=== PATIENT | female | born 1935 | race Caucasian/White ===

== ENCOUNTER 2018-04-26 08:51 | Day surgery (SDC) | payer MEDICARE, BC ==
[2018-04-24 10:48] VITALS: BMI 24.7
[~2018-04-26 08:51] MED LIST: LACTATED RINGERS 1,000 ML IV SCH
[2018-04-26 09:28] VITALS: TEMP 978.3
[2018-04-26] MEDS ORDERED: LIDOCAINE 1% 20 ML VIAL (10MG/ML) FOR IV START INTRADERMA ONE (09:30)
[2018-04-26] MEDS ORDERED: PROPOFOL 10 MG/ML 20 ML VIAL IV ONE (09:59)
[2018-04-26] MEDS ORDERED: LIDOCAINE 1% INJ 10MG/ML (20 ML MDV) ONE (09:59)
--- NOTE | 2018-04-26 10:21 | P.PCN ---
Date of Procedure: 04/26/18 Procedure(s) Performed: Brief history: Patient is a pleasant 83-year-old white female, scheduled for an elective upper endoscopy as well as colonoscopy as a part of evaluation of GERD/Cherry's esophagus and prior history of colon polyps. Procedure performed: Esophagogastroduodenoscopy with biopsy Colonoscopy with snare polypectomy Preoperative diagnosis: GERD/Cherry's esophagus History of colon polyps Anesthesia: MAC Procedure: After informed consent was obtained from the patient was brought into the endoscopy unit and IV sedation was administered by anesthesia under continuous monitoring. Initially upper endoscopy was done. The Olympus GF 160 video endoscope was inserted inserted into the mouth and esophagus intubated without any difficulty and was gradually advanced into the stomach and duodenum and carefully examined. The bulb and second part of the duodenum appeared normal. The scope was then withdrawn into the stomach adequately insufflated with air and upon careful examination the antrum and body, cardia and fundus appeared normal. The scope was then withdrawn into the esophagus. Moderate size hiatal hernia noted. The GE junction was located at 30 cm to the incisors. There was a short segment Cherry's esophagus extending 2 cm proximal to the GE junction and this was biopsied. It appeared regular with no erythema erosions or ulcerations. Rest of the esophagus appeared normal. Patient tolerated the procedure well. At this time the patient continued to remain sedation. Initial digital rectal examination was normal. Olympus CF 160 video colonoscope was then inserted into the rectum and gradually advanced to the cecum without any difficulty. Careful examination was performed as the scope was gradually being withdrawn. The prep was excellent. The cecum, ascending colon, transverse colon, descending colon, appeared normal. In the sigmoid colon there was a 1 cm polyp removed by snare polypectomy. Rest of the sigmoid colon and rectum appeared normal. Retroflexion was performed in the rectum and no lesions were noted. Patient tolerated the procedure well. Impression: 1. 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 2. Colonoscopy revealed 1 cm sigmoid colon polyp status post snare polypectomy and scattered sigmoid diverticulosis. Recommendations: Findings of this examination were discussed with the patient as well as her family. She was advised to follow with the biopsy results. If the biopsy confirms presence of Cherry's esophagus, she can have a repeat upper endoscopy in 2 years
[2018-04-26 10:41] VITALS: BP 120/60; PULSE 68; RESP 18
== END 2018-04-26 11:11 | disposition home or self-care (01) ==
LOC: ORWHC2ENDO 08:51
PROVIDERS: ATTEND Internal Medicine Gastroenterology
DX: Z12.11 Encounter for screening for malignant neoplasm of colon (principal); D12.5 Benign neoplasm of sigmoid colon; K57.30 Diverticulosis of large intestine without perforation or abscess without bleeding; K22.70 Barrett's esophagus without dysplasia; K44.9 Diaphragmatic hernia without obstruction or gangrene; K29.70 Gastritis, unspecified, without bleeding; K21.9 Gastro-esophageal reflux disease without esophagitis; Z86.010 Personal history of colon polyps; I10 Essential (primary) hypertension; E78.5 Hyperlipidemia, unspecified; J45.909 Unspecified asthma, uncomplicated; Z79.51 Long term (current) use of inhaled steroids; Z79.899 Other long term (current) drug therapy
CPT/HCPCS: 88305; 45385; 43239; J2001; J2704

== ENCOUNTER → 2020-09-10 | Outpatient (CLI) | payer MEDICARE, BC ==
--- NOTE | 2020-09-14 08:14 | MM ---
Reason for exam: screening (asymptomatic). Last mammogram was performed 2 years and 6 months ago. History: Patient is postmenopausal. Family history of breast cancer in sister, breast cancer in mother, and breast cancer in maternal aunt. Physical Findings: A clinical breast exam by your physician is recommended on an annual basis and results should be correlated with mammographic findings. MG 3D Screening Mammo W/Cad Bilateral CC, MLO, and XCCL view(s) were taken. Prior study comparison: February 28, 2018, mammogram. November 16, 2016, mammogram. The breast tissue is heterogeneously dense. This may lower the sensitivity of mammography. Benign appearing bilateral calcifications. No significant changes when compared with prior studies. ASSESSMENT: Benign, BI-RAD 2 RECOMMENDATION: Routine screening mammogram of both breasts in 1 year.
== END | disposition home or self-care (01) ==
LOC: RADMAMWWP 12:55
PROVIDERS: ATTEND Family Medicine
DX: Z12.31 Encounter for screening mammogram for malignant neoplasm of breast (principal)
CPT/HCPCS: 77063; 77067

== ENCOUNTER 2021-10-03 11:28 | Inpatient (IN) | payer MEDICARE, BC ==
[2021-10-03] MEDS ORDERED: methylPREDNISolone SOD SUCCI 125 MG/2 ML VIAL IV STA (14:01)
[2021-10-03] MEDS ORDERED: IPRATROPIUM-ALBUTEROL 3 ML NEB INHALATION STA (14:01)
--- NOTE | 2021-10-03 14:36 | XR ---
EXAMINATION TYPE: XR chest 2V DATE OF EXAM: 10/03/2021 COMPARISON: NONE HISTORY: Cough, shortness of breath TECHNIQUE: Frontal and lateral views of the chest are obtained. FINDINGS: Patient is rotated. There is biapical pleural thickening. Retrocardiac lucency with air-fl uid level consistent with hiatal hernia and intrathoracic stomach. Prominent lung markings suggest un derlying COPD. Bone mineralization is reduced. No pneumothorax or pleural effusion. Cardiac silhouett e is enlarged. Patchy density suspected in the right upper lobe. IMPRESSION: Correlate for pneumonia, follow up recommended.
--- NOTE | 2021-10-03 14:55 | ED ---
URI HPI - General Source: patient, RN notes reviewed Mode of arrival: wheelchair Limitations: no limitations <London Oneil - Last Filed: 10/03/21 15:37> <Jennifer Villa - Last Filed: 10/06/21 00:40> - General Chief Complaint: Upper Respiratory Infection Stated Complaint: asthma attack Time Seen by Provider: 10/03/21 13:43 - History of Present Illness Initial Comments: This an 86-year-old female presents emergency Department chief complaint of cough congestion or shortness breath. Patient states symptoms started on Sunday progressed. Patient states she noticed increasing wheezing, shortness of breath she does use her inhaler she has for asthma which seems to help wears off quickly. No exact fever, she does claim a mild chills no sick contacts. Denies any chest pain, headache or dizziness. She states it does hurt herself today. Patient denies any nausea vomiting diarrhea constipation. Patient offers no complaints. (London Oneil) - Related Data Home Medications Medication Instructions Recorded Confirmed Atorvastatin [Lipitor] 40 mg PO HS 04/24/18 10/03/21 Cetirizine HCl [Zyrtec] 10 mg PO DAILY 04/24/18 10/03/21 Fluticasone/Salmeterol [Advair 1 puff INHALATION RT-BID 04/24/18 10/03/21 250-50 Diskus] LORazepam [Ativan] 0.25 mg PO HS 04/24/18 10/03/21 LORazepam [Ativan] 0.5 mg PO DAILY 04/24/18 10/03/21 Metoprolol Tartrate 25 mg PO DAILY 04/24/18 10/03/21 Omeprazole 20 mg PO DAILY 04/24/18 10/03/21 Sertraline [Zoloft] 50 mg PO DAILY 04/24/18 10/03/21 Albuterol Sulfate [Ventolin HFA] 1 - 2 puff INHALATION RT-QID PRN 10/03/21 10/03/21 Fluticasone Nasal [place] [Flonase 1 spray EA NOSTRIL DAILY PRN 10/03/21 10/03/21 Nasal [place]] Previous Rx's Medication Instructions Recorded Amoxic-Pot Clav 875-125Mg 1 tab PO BID 7 Days #14 tab 10/05/21 [Augmentin 875-125] Sucralfate [Carafate] 1 gm PO ACHS #120 tablet 10/05/21 guaiFENesin [Mucinex] 1,200 mg PO Q12HR #60 tablet 10/05/21 predniSONE [Deltasone] 40 mg PO DAILY #14 tab 10/05/21 Allergies Allergy/AdvReac Type Severity Reaction Status Date / Time No Known Allergies Allergy Verified 10/03/21 16:21 Review of Systems ROS Other: All systems not noted in ROS Statement are negative. <London Oneil - Last Filed: 10/03/21 15:37> ROS Other: All systems not noted in ROS Statement are negative. <Jennifer Villa - Last Filed: 10/06/21 00:40> ROS Statement: Those systems with pertinent positive or pertinent negative responses have been documented in the HPI. Past Medical History Past Medical History: Asthma, GERD/Reflux, Hyperlipidemia, Hypertension, Osteoarthritis (OA), Skin Disorder Additional Past Medical History / Comment(s): Irregular heartbeat, Barretts esophagus, constipation skin disorder resolved, can't remember name of it. "Runs a low temp most of the time." History of Any Multi-Drug Resistant Organisms: None Reported Past Surgical History: Hysterectomy Additional Past Surgical History / Comment(s): Bilateral cataracts. Past Anesthesia/Blood Transfusion Reactions: No Reported Reaction Past Psychological History: Anxiety Smoking Status: Never smoker Past Alcohol Use History: None Reported Past Drug Use History: None Reported - Past Family History Mother Family Medical History: Cancer Additional Family Medical History / Comment(s): Breast cancer Father Family Medical History: Cancer Additional Family Medical History / Comment(s): Colon cancer Sister(s) Family Medical History: Cancer Additional Family Medical History / Comment(s): Breast cancer <London Oneil - Last Filed: 10/03/21 15:37> General Exam Limitations: no limitations General appearance: alert, in no apparent distress Head exam: Present: atraumatic, normocephalic, normal inspection Eye exam: Present: normal appearance, PERRL, EOMI. Absent: scleral icterus, conjunctival injection, periorbital swelling ENT exam: Present: normal exam, normal oropharynx, mucous membranes moist Neck exam: Present: normal inspection, full ROM. Absent: tenderness, meningismus, lymphadenopathy Respiratory exam: Present: wheezes. Absent: normal lung sounds bilaterally, respiratory distress, rales, rhonchi, stridor Cardiovascular Exam: Present: regular rate, normal rhythm, normal heart sounds. Absent: systolic murmur, diastolic murmur, rubs, gallop, clicks <London Oneil - Last Filed: 10/03/21 15:37> Course Vital Signs 10/03/21 10/03/21 10/03/21 13:35 14:33 15:06 Temperature 98.3 F Pulse Rate 65 63 65 Respiratory 20 18 Rate Blood Pressure 100/72 188/80 O2 Sat by Pulse 95 92 L Oximetry 10/03/21 10/03/21 10/03/21 15:20 16:15 16:19 Temperature Pulse Rate 66 73 Respiratory 18 20 Rate Blood Pressure 156/80 O2 Sat by Pulse 92 L Oximetry 10/03/21 16:23 Temperature 98.3 F Pulse Rate 73 Respiratory 20 Rate Blood Pressure 156/80 O2 Sat by Pulse 92 L Oximetry Medical Decision Making - Lab Data Result diagrams: 10/03/21 14:33 10/03/21 14:33 <London Oneil - Last Filed: 10/03/21 15:37> - Lab Data Result diagrams: 10/03/21 14:33 10/03/21 14:33 <Jennifer Villa - Last Filed: 10/06/21 00:40> - Medical Decision Making Chest x-ray shows evidence of pneumonia. Patient has had some hypoxia 90%. Patient will be made for acute asthma exacerbation, pneumonia. (London Oneil) I was available for consultation in the emergency department. The history and physical exam were done by the midlevel provider. I was consulted for this patients care. I reviewed the case with the midlevel provider and based on their presentation of the patient, I agree with the assessment, medical decision making and plan of care as documented. Chart was dictated using [employer] dictation software. Attempts were made to correct any dictation errors however some typographical errors may persist. ( Jennifer Villa) - Lab Data Lab Results 10/03/21 10/03/21 10/03/21 Range/Units 14:01 14:33 14:33 WBC 10.5 (3.8-10.6) k/uL RBC 4.38 (3.80-5.40) m/uL Hgb 13.1 (11.4-16.0) gm/dL Hct 40.4 (34.0-46.0) % MCV 92.2 (80.0-100.0) fL MCH 29.9 (25.0-35.0) pg MCHC 32.4 (31.0-37.0) g/dL RDW 12.9 (11.5-15.5) % Plt Count 237 (150-450) k/uL MPV 7.5 Neutrophils % 77 % Lymphocytes % 9 % Monocytes % 6 % Eosinophils % 7 % Basophils % 1 % Neutrophils # 8.0 H (1.3-7.7) k/uL Lymphocytes # 1.0 (1.0-4.8) k/uL Monocytes # 0.6 (0-1.0) k/uL Eosinophils # 0.7 (0-0.7) k/uL Basophils # 0.1 (0-0.2) k/uL Sodium 137 (137-145) mmol/L Potassium 4.7 (3.5-5.1) mmol/L Chloride 103 (98-107) mmol/L Carbon Dioxide 25 (22-30) mmol/L Anion Gap 9 mmol/L BUN 21 H (7-17) mg/dL Creatinine 1.20 H (0.52-1.04) mg/dL Est GFR (CKD-EPI)AfAm 47 (>60 ml/min/1.73 sqM) Est GFR (CKD-EPI)NonAf 41 (>60 ml/min/1.73 sqM) Glucose 93 (74-99) mg/dL Calcium 9.2 (8.4-10.2) mg/dL Total Bilirubin 0.4 (0.2-1.3) mg/dL AST 24 (14-36) U/L ALT 18 (4-34) U/L Alkaline Phosphatase 101 (38-126) U/L Total Protein 7.2 (6.3-8.2) g/dL Albumin 4.0 (3.5-5.0) g/dL Coronavirus (PCR) Not Detected (Not Detectd) Disposition <London Oneil - Last Filed: 10/03/21 15:37> <Jennifer Villa - Last Filed: 10/06/21 00:40> Clinical Impression: Pneumonia, Asthma exacerbation Disposition: ADMITTED IP TO THIS HOSP Condition: Fair
[2021-10-03 15:02] LABS: Basophils # (A) 0.1 k/uL (0-0.2); Basophils % (A) 1 %; Eosinophils # (A) 0.7 k/uL (0-0.7); Eosinophils % (A) 7 %; HCT 40.4 % (34.0-46.0); HGB 13.1 gm/dL (11.4-16.0); Lymphocytes % (A) 9 %; MCH 29.9 pg (25.0-35.0); MCHC 32.4 g/dL (31.0-37.0); MCV 92.2 fL (80.0-100.0); Mean Platelet Volume 7.5; Monocytes # (A) 0.6 k/uL (0-1.0); Monocytes % (A) 6 %; Neutrophils % (A) 77 %; Platelet Count 237 k/uL (150-450); RBC 4.38 m/uL (3.80-5.40); RDW 12.9 % (11.5-15.5); WBC 10.5 k/uL (3.8-10.6)
[2021-10-03 15:18] LABS: Calcium 9.2 mg/dL (8.4-10.2); Potassium 4.7 mmol/L (3.5-5.1); Total Bilirubin 0.4 mg/dL (0.2-1.3); Total Protein 7.2 g/dL (6.3-8.2)
[2021-10-03] MEDS ORDERED: AZITHROMYCIN 500 MG in SODIUM CHLORIDE 0.9% 250 ML IVPB STA (15:35)
[2021-10-03] MEDS ORDERED: PNEUMONIA PROTOCOL UTILIZED 1 EACH MISC PO PRN (15:37)
[2021-10-03] MEDS ORDERED: methylPREDNISolone SOD SUCCI 125 MG/2 ML VIAL IV SCH (16:00)
[2021-10-03] MEDS ORDERED: FLUTICASONE 50MCG/SPRAY NASAL 16GM EA NOSTRIL PRN (17:28)
[2021-10-03] MEDS: LORATADINE 10 MG TAB PO SCH (17:49)
[2021-10-03] MEDS: IPRATROPIUM-ALBUTEROL 3 ML NEB INHALATION SCH ×2 (19:57→20:06)
[2021-10-03] MEDS: LORazepam 0.5 MG TAB PO SCH (20:00)
[2021-10-03] MEDS: ATORVASTATIN 40 MG TAB PO SCH (20:01)
[2021-10-03] MEDS: methylPREDNISolone SOD SUCCI 125 MG/2 ML VIAL IV SCH (20:01)
[2021-10-03] MEDS: guaiFENesin 600 MG TABLET.ER PO SCH (20:01)
[2021-10-03] MEDS: BUDESONIDE 0.5 MG/2 ML NEBU INHALATION SCH (20:05)
[2021-10-03] MEDS: ACETAMINOPHEN TAB 325 MG TAB PO PRN (21:00)
[2021-10-04] MEDS: IPRATROPIUM-ALBUTEROL 3 ML NEB INHALATION SCH ×8 (00:43→20:58)
[2021-10-04] MEDS: methylPREDNISolone SOD SUCCI 125 MG/2 ML VIAL IV SCH ×4 (00:49→18:09)
[2021-10-04] MEDS: BUDESONIDE 0.5 MG/2 ML NEBU INHALATION SCH ×2 (08:10→20:58)
[2021-10-04] MEDS: SERTRALINE 50 MG TAB PO SCH (08:10)
[2021-10-04] MEDS: METOPROLOL TARTRATE 25 MG TAB PO SCH (08:10)
[2021-10-04] MEDS: PANTOPRAZOLE 40 MG TABLET PO SCH (08:10)
[2021-10-04] MEDS: LORATADINE 10 MG TAB PO SCH (08:10)
[2021-10-04] MEDS: AZITHROMYCIN 500 MG TAB PO SCH (08:10)
[2021-10-04] MEDS: guaiFENesin 600 MG TABLET.ER PO SCH ×2 (08:10→21:16)
--- NOTE | 2021-10-04 08:53 | XR ---
EXAMINATION TYPE: XR chest 2V DATE OF EXAM: 10/04/2021 COMPARISON: Chest x-ray dated 10/03/2021 HISTORY: Pneumonia TECHNIQUE: Frontal and lateral views of the chest are obtained. FINDINGS: Prominent lung volume may be indicative of underlying COPD. Partial intrathoracic stomach is again noted. No evident pneumothorax. Right hemidiaphragm is elevated. Heart size is increased, ap pearance may be accentuated by rotation. Biapical pleural thickening is stable. There may be some sli ght improvement in aeration. Bone mineralization is reduced. IMPRESSION: There is some improvement in aeration.
--- NOTE | 2021-10-04 15:32 | P.HPIM ---
History of Present Illness H&P Date: 10/04/21 HISTORY OF PRESENT ILLNESS Is is an 86-year-old female patient of Dr. Gordon Blake with past medical history of hiatal hernia, gastroesophageal reflux disease, chronic ALLERGIES, hypertension, hyperlipidemia, mild intermittent asthma, generalized anxiety disorder and recurrent depression. Patient states that she has had shortness of breath and cough started with a runny nose on Sunday and she contacted her doctor and he recommended a Covid test which came back negative. She came into [facility] emergency center yesterday due to worsening of her symptoms along with wheezing. She was found to be afebrile, heart rate 65, blood pressure 100/72, pulse ox 95% on room air. CBC was unremarkable. Electrolytes normal. BUN 21 and creatinine 1.2. Carotid virus PCR not detected. Liver function tests were normal. Chest x-ray reports correlate for pneumonia. Repeat chest x-ray reveals improvement in aeration. Patient started on IV Solu-Medrol, DuoNeb treatments, ceftriaxone and azithromycin along with Pulmicort, Mucinex admitted to the [facility] floor. REVIEW OF SYSTEMS Constitutional: No fever, no chills, no night sweats. No weight change. No weakness, fatigue or lethargy. No daytime sleepiness. EENT: No headache. No blurred vision or double vision, no loss of vision. No loss of Hearing, no ringing in the ears, no dizziness. Reports nasal drainage or congestion. No epistaxis. No sore throat. Lungs: Reports shortness of breath, Reports cough, no sputum production. No wheezing. Cardiovascular: No chest pain, no lower extremity edema. No palpitations. No paroxysmal nocturnal dyspnea. No orthopnea. No lightheadedness or dizziness. No syncopal episodes. Abdominal: No abdominal pain. No nausea, vomiting. No diarrhea. No constipation. No bloody or tarry stools. No loss of appetite. Genitourinary: No dysuria, increased frequency, urgency. No urinary retention. Musculoskeletal: No myalgias. No muscle weakness, no gait dysfunction, no frequent falls. No back pain. No neck pain. Integumentary: No wounds, no lesions. No rash or pruritus. No unusual bruising. No change in hair or nails. Neurologic: No aphasia. No facial droop. No change in mentation. No head injury. No headache. No paralysis. No paresthesia. Psychiatric: No depression. No anxiety. No mood swings. Endocrine: No abnormal blood sugars. No weight change. No excessive sweating or thirst. No cold intolerance. SOCIAL HISTORY Patient is a lifelong nonsmoker, no marijuana use, illicit drug use or alcohol use. FAMILY HISTORY at age 82 from breast cancer. Father at age 79 from colon cancer with metastatic disease. Patient has 3 brothers, one at age 92 from old age, one at 84 from old age and one has history of low sodium. She has one brother living at age 92 with no major medical problems. Patient has one sister that age 80 with breast cancer and one with history of low sodium. Patient has 2 children one boy and one girl with history of GERD PHYSICAL EXAMINATION Gen: This is an 86-year-old female. She is resting in bed in her room and appears to be comfortable and in no acute distress. She does complain of shaking secondary to steroid. HEENT: Head is atraumatic, normocephalic. Pupils equal, round. Sclerae is anicteric. NECK: Supple. No JVD. No lymphadenopathy. No thyromegaly. LUNGS: Clear bilaterally with mild wheezing. No intercostal retractions. HEART: Regular rate and rhythm. No murmur. ABDOMEN: Soft. Bowel sounds are present. No masses. No tenderness. EXTREMITIES: No pedal edema. No calf tenderness. NEUROLOGICAL: Patient is awake, alert and oriented x3. Cranial nerves 2 through 12 are grossly intact. ASSESSMENT AND PLAN 1. Pneumonia, possible aspiration pneumonia. Patient started on azithromycin and ceftriaxone, consult with speech therapy to evaluate for aspiration due to history of hiatal hernia and gastroesophageal reflux disease, right upper lobe pneumonia. 2. Mild intermittent asthma exacerbation, COPD exacerbation. Patient continued on DuoNeb treatments every 4 hours and is negative, Pulmicort 0.5 mg twice daily, Solu-Medrol 60 mg IV every 6 hours, Mucinex 1200 mg twice daily. 3. History of gastroesophageal reflux disease and hiatal hernia. Continue Protonix 40 mg daily. 4. Chronic ALLERGIES. Continue Flonase, Claritin daily. 5. Hypertension. Continue metoprolol 25 mg daily 6. Hyperlipidemia. Continue atorvastatin 40 mg at bedtime. 7. Generalized anxiety disorder and recurrent depression. Continue Ativan 0.5 mg daily, Zoloft 50 mg daily. 8. DVT prophylaxis. Lovenox subcu. 9. COVID-19 testing negative. Patient has been hospitalized during a pandemic. Patient will be admitted to the hospital for a minimum of 2 night stay. DISCHARGE PLAN Home. Impression and plan of care have been directed as dictated by the signing physician. Kiara Varner nurse practitioner acting as scribe for signing physician. Past Medical History Past Medical History: Asthma, GERD/Reflux, Hyperlipidemia, Hypertension, Osteoarthritis (OA), Skin Disorder Additional Past Medical History / Comment(s): Irregular heartbeat, Barretts esophagus, constipation skin disorder resolved, can't remember name of it. "Runs a low temp most of the time." History of Any Multi-Drug Resistant Organisms: None Reported Past Surgical History: Hysterectomy Additional Past Surgical History / Comment(s): Bilateral cataracts. Past Anesthesia/Blood Transfusion Reactions: No Reported Reaction Past Psychological History: Anxiety Smoking Status: Never smoker Past Alcohol Use History: None Reported Past Drug Use History: None Reported - Past Family History Mother Family Medical History: Cancer Additional Family Medical History / Comment(s): Breast cancer Father Family Medical History: Cancer Additional Family Medical History / Comment(s): Colon cancer Sister(s) Family Medical History: Cancer Additional Family Medical History / Comment(s): Breast cancer Medications and Allergies Home Medications Medication Instructions Recorded Confirmed Type Atorvastatin [Lipitor] 40 mg PO HS 04/24/18 10/03/21 History Cetirizine HCl [Zyrtec] 10 mg PO DAILY 04/24/18 10/03/21 History Fluticasone/Salmeterol [Advair 1 puff INHALATION RT-BID 04/24/18 10/03/21 History 250-50 Diskus] LORazepam [Ativan] 0.25 mg PO HS 04/24/18 10/03/21 History LORazepam [Ativan] 0.5 mg PO DAILY 04/24/18 10/03/21 History Metoprolol Tartrate 25 mg PO DAILY 04/24/18 10/03/21 History Omeprazole 20 mg PO DAILY 04/24/18 10/03/21 History Sertraline [Zoloft] 50 mg PO DAILY 04/24/18 10/03/21 History Albuterol Sulfate [Ventolin HFA] 1 - 2 puff INHALATION RT-QID PRN 10/03/21 10/03/21 History Fluticasone Nasal [place] [Flonase 1 spray EA NOSTRIL DAILY PRN 10/03/21 10/03/21 History Nasal [place]] Allergies Allergy/AdvReac Type Severity Reaction Status Date / Time No Known Allergies Allergy Verified 10/03/21 16:21 Physical Exam Vitals: Vital Signs Temp Pulse Pulse Resp BP BP Pulse Ox 10/04/21 08:24 97 10/04/21 08:10 93 96 10/04/21 07:00 98.3 F 101 H 16 157/68 96 10/04/21 04:53 112 H 10/04/21 04:42 110 H 10/04/21 02:00 93 20 10/04/21 01:59 97.9 F 88 18 107/57 91 L 10/03/21 20:19 92 10/03/21 20:06 93 10/03/21 19:57 20 10/03/21 19:53 98.0 F 93 22 144/76 91 L 10/03/21 16:23 98.3 F 73 20 156/80 92 L 10/03/21 16:19 20 10/03/21 16:15 73 18 156/80 92 L 10/03/21 15:20 66 10/03/21 15:06 65 10/03/21 14:33 63 18 188/80 92 L 10/03/21 13:35 98.3 F 65 20 100/72 95 Intake and Output 10/03/21 10/04/21 10/04/21 22:59 06:59 14:59 Intake Total 320 150 Balance 320 150 Intake: Oral 320 150 Other: Voiding Method Diaper Diaper Diaper # Voids 1 1 Weight 58.967 kg Results CBC & Chem 7: 10/03/21 14:33 10/03/21 14:33 Labs: Abnormal Lab Results - Last 24 Hours (Table) 10/03/21 10/03/21 Range/Units 14:33 14:33 Neutrophils # 8.0 H (1.3-7.7) k/uL BUN 21 H (7-17) mg/dL Creatinine 1.20 H (0.52-1.04) mg/dL Thrombosis Risk Factor Assmnt - Choose All That Apply Each Risk Factor Represents 3 Points: Age 75 years or older Thrombosis Risk Factor Assessment Total Risk Factor Score: 3 Thrombosis Risk Factor Assessment Level: Moderate Risk
[2021-10-04 17:29] LABS: Glucose,Whole Blood 173 mg/dL (75-99)
[2021-10-04] MEDS: INSULIN ASPART (NovoLOG) 100 UNIT/ML VIAL SQ SCH ×2 (18:09→21:16)
[2021-10-04 20:31] LABS: Glucose,Whole Blood 137 mg/dL (75-99)
[2021-10-04] MEDS: LORazepam 0.5 MG TAB PO SCH (21:16)
[2021-10-04] MEDS: ACETAMINOPHEN TAB 325 MG TAB PO PRN (21:16)
[2021-10-04] MEDS: ATORVASTATIN 40 MG TAB PO SCH (21:16)
[2021-10-05] MEDS: IPRATROPIUM-ALBUTEROL 3 ML NEB INHALATION SCH ×3 (00:33→08:53)
[2021-10-05 01:57] VITALS: RESP 18
[2021-10-05] MEDS: methylPREDNISolone SOD SUCCI 125 MG/2 ML VIAL IV SCH (02:02)
[2021-10-05 07:43] LABS: Glucose,Whole Blood 136 mg/dL (75-99)
[2021-10-05] MEDS ORDERED: methylPREDNISolone SOD SUCCI 125 MG/2 ML VIAL IV SCH (08:00)
[2021-10-05 08:29] VITALS: BP 156/68; TEMP 97.6
[2021-10-05] MEDS: BUDESONIDE 0.5 MG/2 ML NEBU INHALATION SCH (08:52)
[2021-10-05] MEDS ORDERED: ENOXAPARIN 40 MG/0.4 ML SYRINGE SQ SCH (09:00)
[2021-10-05] MEDS ORDERED: LORazepam 0.5 MG TAB PO SCH (09:00)
[2021-10-05 09:05] VITALS: PULSE 83
[2021-10-05] MEDS: SERTRALINE 50 MG TAB PO SCH (09:20)
[2021-10-05] MEDS: AZITHROMYCIN 500 MG TAB PO SCH (09:20)
[2021-10-05] MEDS: guaiFENesin 600 MG TABLET.ER PO SCH (09:20)
[2021-10-05] MEDS: METOPROLOL TARTRATE 25 MG TAB PO SCH (09:20)
[2021-10-05] MEDS: LORATADINE 10 MG TAB PO SCH (09:20)
[2021-10-05] MEDS: PANTOPRAZOLE 40 MG TABLET PO SCH (09:20)
[2021-10-05] MEDS: INSULIN ASPART (NovoLOG) 100 UNIT/ML VIAL SQ SCH (09:21)
--- NOTE | 2021-10-05 16:48 | P.DS ---
Providers Date of admission: 10/04/21 08:56 Attending physician: Terri Whitfield MD Primary care physician: [facility] Course: HISTORY OF PRESENT ILLNESS Is is an 86-year-old female patient of Dr. Gordon Blake with past medical history of hiatal hernia, gastroesophageal reflux disease, chronic ALLERGIES, hypertension, hyperlipidemia, mild intermittent asthma, generalized anxiety disorder and recurrent depression. Patient states that she has had shortness of breath and cough started with a runny nose on Sunday and she contacted her doctor and he recommended a Covid test which came back negative. She came into [facility] emergency center yesterday due to worsening of her symptoms along with wheezing. She was found to be afebrile, heart rate 65, blood pressure 100/72, pulse ox 95% on room air. CBC was unremarkable. Electrolytes normal. BUN 21 and creatinine 1.2. Carotid virus PCR not detected. Liver function tests were normal. Chest x-ray reports correlate for pneumonia. Repeat chest x-ray reveals improvement in aeration. Patient started on IV Solu-Medrol, DuoNeb treatments, ceftriaxone and azithromycin along with Pulmicort, Mucinex [facility]. 10/05 patient examined bedside. She is doing better denies any shortness of breath or cough production. We'll discharge patient on prednisone 40 mg by mouth daily for 5 days with Augmentin for 7 days as there was a concern for aspiration pneumonia. Patient will also benefit from adding Carafate to her regimen to prevent future aspiration and GERD symptoms PHYSICAL EXAMINATION Gen: This is an 86-year-old female. She is resting in bed in her room and appears to be comfortable and in no acute distress. She does complain of shaking secondary to steroid. HEENT: Head is atraumatic, normocephalic. Pupils equal, round. Sclerae is anicteric. NECK: Supple. No JVD. No lymphadenopathy. No thyromegaly. LUNGS: Clear bilaterally with improvement in wheezing. No intercostal retractions. HEART: Regular rate and rhythm. No murmur. ABDOMEN: Soft. Bowel sounds are present. No masses. No tenderness. EXTREMITIES: No pedal edema. No calf tenderness. NEUROLOGICAL: Patient is awake, alert and oriented x3. Cranial nerves 2 through 12 are grossly intact. ASSESSMENT AND PLAN 1. Pneumonia, possible aspiration pneumonia. 2. Mild intermittent asthma exacerbation, COPD exacerbation. 3. History of gastroesophageal reflux disease and intrathoracic hiatal hernia. 4. Chronic ALLERGIES. 5. Hypertension. 6. Hyperlipidemia. 7. Generalized anxiety disorder and recurrent depression. Disposition home Patient Condition at Discharge: Fair Plan - Discharge Summary Discharge Rx Participant: No New Discharge Prescriptions: New Amoxic-Pot Clav 875-125Mg [Augmentin 875-125] 1 tab PO BID 7 Days #14 tab predniSONE [Deltasone] 40 mg PO DAILY #14 tab guaiFENesin [Mucinex] 1,200 mg PO Q12HR #60 tablet Sucralfate [Carafate] 1 gm PO ACHS #120 tablet Continue Fluticasone/Salmeterol [Advair 250-50 Diskus] 1 puff INHALATION RT-BID Sertraline [Zoloft] 50 mg PO DAILY LORazepam [Ativan] 0.5 mg PO DAILY LORazepam [Ativan] 0.25 mg PO HS Metoprolol Tartrate 25 mg PO DAILY Cetirizine HCl [Zyrtec] 10 mg PO DAILY Atorvastatin [Lipitor] 40 mg PO HS Omeprazole 20 mg PO DAILY Fluticasone Nasal [place] [Flonase Nasal [place]] 1 spray EA NOSTRIL DAILY PRN PRN Reason: Allergy Symptoms Albuterol Sulfate [Ventolin HFA] 1 - 2 puff INHALATION RT-QID PRN PRN Reason: Shortness Of Breath Discharge Medication List Atorvastatin [Lipitor] 40 mg PO HS 04/24/18 [History] Cetirizine HCl [Zyrtec] 10 mg PO DAILY 04/24/18 [History] Fluticasone/Salmeterol [Advair 250-50 Diskus] 1 puff INHALATION RT-BID 04/24/18 [History] LORazepam [Ativan] 0.25 mg PO HS 04/24/18 [History] LORazepam [Ativan] 0.5 mg PO DAILY 04/24/18 [History] Metoprolol Tartrate 25 mg PO DAILY 04/24/18 [History] Omeprazole 20 mg PO DAILY 04/24/18 [History] Sertraline [Zoloft] 50 mg PO DAILY 04/24/18 [History] Albuterol Sulfate [Ventolin HFA] 1 - 2 puff INHALATION RT-QID PRN 10/03/21 [History] Fluticasone Nasal [place] [Flonase Nasal [place]] 1 spray EA NOSTRIL DAILY PRN 10/03/21 [History] Amoxic-Pot Clav 875-125Mg [Augmentin 875-125] 1 tab PO BID 7 Days #14 tab 10/05/21 [Rx] Sucralfate [Carafate] 1 gm PO ACHS #120 tablet 10/05/21 [Rx] guaiFENesin [Mucinex] 1,200 mg PO Q12HR #60 tablet 10/05/21 [Rx] predniSONE [Deltasone] 40 mg PO DAILY #14 tab 10/05/21 [Rx] Follow up Appointment(s)/Referral(s): Gordon Blake MD [Primary Care Provider] - 1-2 days Patient Instructions/Handouts: Pneumonia (DC) Discharge Disposition: HOME SELF-CARE
== END 2021-10-05 11:25 | disposition home or self-care (01) | DRG 178 ==
LOC: EC 11:28 → 6NMEDSUR 15:43 → OBSVTOIN 10-04 08:56
PROVIDERS: ADMIT Internal Medicine; ATTEND Internal Medicine
DX: J69.0 Pneumonitis due to inhalation of food and vomit (principal); F33.9 Major depressive disorder, recurrent, unspecified; J44.0 Chronic obstructive pulmonary disease with (acute) lower respiratory infection; J45.21 Mild intermittent asthma with (acute) exacerbation; E78.5 Hyperlipidemia, unspecified; F41.1 Generalized anxiety disorder; M19.90 Unspecified osteoarthritis, unspecified site; K59.00 Constipation, unspecified; K44.9 Diaphragmatic hernia without obstruction or gangrene; K21.9 Gastro-esophageal reflux disease without esophagitis; I10 Essential (primary) hypertension; K22.70 Barrett's esophagus without dysplasia; Z20.822 Contact with and (suspected) exposure to COVID-19; Z79.51 Long term (current) use of inhaled steroids; Z79.899 Other long term (current) drug therapy; Z90.710 Acquired absence of both cervix and uterus; Z98.42 Cataract extraction status, left eye; Z98.41 Cataract extraction status, right eye; Z80.0 Family history of malignant neoplasm of digestive organs; Z80.3 Family history of malignant neoplasm of breast
CPT/HCPCS: 36415; 71046; 80053; 84145; 85025; 87040; 87070; 87205; 87635; 94640; 96374; 96376; 99285

== ENCOUNTER → 2023-02-08 | Outpatient (CLI) | payer MEDICARE, BC ==
--- NOTE | 2023-02-09 07:59 | MM ---
Reason for Exam: Screening (asymptomatic). Last mammogram was performed 2 year(s) and 5 month(s) ago. Patient History: Menarche at age 16. First Full-Term at age 26. Hysterectomy at age 60. Postmenopausal. Maternal aunt had breast cancer, age 70. Sister had breast cancer, age 60. Mother had breast cancer, age 65. Prior Study Comparison: 11/16/2016 Screening Mammogram, Unknown. 02/28/2018 Screening Mammogram, Unknown. 09/10/2020 Bilateral Screening Mammogram, [facility]. Tissue Density: The breast tissue is heterogeneously dense. This may lower the sensitivity of mammography. Findings: Analyzed By CAD. There is no suspicious group of microcalcifications or new suspicious mass in either breast. Overall Assessment: Negative, BI-RAD 1 Management: Screening Mammogram of both breasts in 1 year. A clinical breast exam by your physician is recommended on an annual basis and results should be correlated with mammographic findings. Electronically signed and approved by: Nuno Finn M.D. Radiologis
== END | disposition home or self-care (01) ==
LOC: RADMAMWWP 09:20
PROVIDERS: ATTEND Family Medicine
DX: Z12.31 Encounter for screening mammogram for malignant neoplasm of breast (principal); Z80.3 Family history of malignant neoplasm of breast; Z78.0 Asymptomatic menopausal state
CPT/HCPCS: 77063; 77067

== ENCOUNTER → 2024-02-21 | Outpatient (CLI) | payer MEDICARE, BC ==
--- NOTE | 2024-02-22 14:14 | MM ---
Reason for Exam: Screening (asymptomatic). Last mammogram was performed 1 year(s) and 1 month(s) ago. Patient History: Menarche at age 16. First Full-Term at age 26. Hysterectomy at age 60. Postmenopausal. Maternal aunt (great) had breast cancer, age 70. Sister had breast cancer, age 60. Mother had breast cancer, age 65. Prior Study Comparison: 11/09/2015 Screening Mammogram, Unknown. 11/16/2016 Screening Mammogram, Unknown. 02/28/2018 Screening Mammogram, Unknown. 09/10/2020 Bilateral Screening Mammogram, [facility]. 02/08/2023 Bilateral MG 3D screening mammo w/cad, [facility]. Tissue Density: The breasts are heterogeneously dense, which may obscure small masses. Findings: Analyzed By CAD. There is no suspicious group of microcalcifications or new suspicious mass in either breast. Overall Assessment: Benign, BI-RAD 2 Management: Screening Mammogram of both breasts in 1 year. . Patient should continue monthly self-breast exams. A clinical breast exam by your physician is recommended on an annual basis. This exam should not preclude additional follow-up of suspicious palpable abnormalities. Note on Jillian scores and lifetime risk: 1. A Jillian score greater than 3% is considered moderate risk. If this is the case, consider specialist referral to assess eligibility for a risk reducing agent. 2. If overall lifetime risk for the development of breast cancer is 20% or higher, the patient may qualify for future screening with alternating mammogram and breast MRI. Electronically signed and approved by: Nuno Finn M.D. Radiologis
== END | disposition home or self-care (01) ==
LOC: RADMAMWWP 09:07
PROVIDERS: ATTEND Family Medicine
DX: Z12.31 Encounter for screening mammogram for malignant neoplasm of breast (principal); Z78.0 Asymptomatic menopausal state; Z80.3 Family history of malignant neoplasm of breast
CPT/HCPCS: 77063; 77067

== ENCOUNTER 2024-07-27 12:28 | Emergency (ER) | payer MEDICARE, BC ==
--- NOTE | 2024-07-27 13:04 | ED ---
SOB HPI - General Chief Complaint: Fever Stated Complaint: MAURICIO,Cough Time Seen by Provider: 07/27/24 12:55 Source: patient, family, RN notes reviewed Mode of arrival: ambulatory Limitations: no limitations - History of Present Illness Initial Comments: This is an 89-year-old female who presents to the emergency department for coughing, congestion, shortness of breath, and fevers. States that it started a couple of days ago. She is concerned about being exposed to COVID at [employer]. She presents with her who is also sick with similar symptoms. Reports a history of asthma and states that she feels like this is causing it to flareup. She is using her albuterol inhaler, which she states is helpful when she needs it. Does also note 1 episode of vomiting this morning, but states that she is no longer nauseous. MD Complaint: shortness of breath, cough - Related Data Home Medications Medication Instructions Recorded Confirmed Atorvastatin [Lipitor] 40 mg PO HS 04/24/18 10/03/21 Cetirizine HCl [Zyrtec] 10 mg PO DAILY 04/24/18 10/03/21 Fluticasone Propion/Salmeterol 1 puff INHALATION RT-BID 04/24/18 10/03/21 [Advair 250-50 Diskus] LORazepam [Ativan] 0.25 mg PO HS 04/24/18 10/03/21 LORazepam [Ativan] 0.5 mg PO DAILY 04/24/18 10/03/21 Metoprolol Tartrate 25 mg PO DAILY 04/24/18 10/03/21 Omeprazole 20 mg PO DAILY 04/24/18 10/03/21 Sertraline [Zoloft] 50 mg PO DAILY 04/24/18 10/03/21 Albuterol Sulfate [Ventolin HFA] 1 - 2 puff INHALATION RT-QID PRN 10/03/21 10/03/21 Fluticasone Nasal [place] [Flonase 1 spray EA NOSTRIL DAILY PRN 10/03/21 10/03/21 Nasal [place]] Previous Rx's Medication Instructions Recorded Amoxic-Pot Clav 875-125Mg 1 tab PO BID 7 Days #14 tab 10/05/21 [Augmentin 875-125] Sucralfate [Carafate] 1 gm PO ACHS #120 tablet 10/05/21 guaiFENesin [Mucinex] 1,200 mg PO Q12HR #60 tablet 10/05/21 predniSONE [Deltasone] 40 mg PO DAILY #14 tab 10/05/21 Benzonatate [Tessalon Perles] 100 mg PO TID PRN #30 capsule 07/27/24 Nirmatrelvir/Ritonavir [Paxlovid 1 pack PO BID 5 Days #20 tab 07/27/24 150-100 mg Dose Pack] Ondansetron Odt [Zofran Odt] 4 mg PO Q8HR PRN #20 tab 07/27/24 Allergies Allergy/AdvReac Type Severity Reaction Status Date / Time No Known Allergies Allergy Verified 07/27/24 12:44 Review of Systems ROS Statement: Those systems with pertinent positive or pertinent negative responses have been documented in the HPI. ROS Other: All systems not noted in ROS Statement are negative. Past Medical History Past Medical History: Asthma, GERD/Reflux, Hyperlipidemia, Hypertension, Osteoarthritis (OA), Skin Disorder Additional Past Medical History / Comment(s): Irregular heartbeat, Barretts esophagus, constipation skin disorder resolved, can't remember name of it. "Runs a low temp most of the time." History of Any Multi-Drug Resistant Organisms: None Reported Past Surgical History: Hysterectomy Additional Past Surgical History / Comment(s): Bilateral cataracts. Past Anesthesia/Blood Transfusion Reactions: No Reported Reaction Past Psychological History: Anxiety Smoking Status: Never smoker Past Alcohol Use History: None Reported Past Drug Use History: None Reported - Past Family History Mother Family Medical History: Cancer Additional Family Medical History / Comment(s): Breast cancer Father Family Medical History: Cancer Additional Family Medical History / Comment(s): Colon cancer Sister(s) Family Medical History: Cancer Additional Family Medical History / Comment(s): Breast cancer General Exam - General Exam Comments Initial Comments: Visual Physical Exam Vital signs reviewed General: Well-appearing, nontoxic, no acute distress. Head: Normocephalic, atraumatic Eyes: PERRLA, EOMI ENT: Airway patent Chest: Nonlabored breathing Skin: No visual rash, normal skin tone Neuro: Alert and oriented 3 Musculoskeletal: No gross abnormalities Limitations: no limitations General appearance: alert, in no apparent distress Head exam: Present: atraumatic, normocephalic, normal inspection Respiratory exam: Present: normal lung sounds bilaterally. Absent: respiratory distress, wheezes, rales, rhonchi, stridor Cardiovascular Exam: Present: regular rate, normal rhythm, normal heart sounds. Absent: systolic murmur, diastolic murmur, rubs, gallop, clicks Neurological exam: Present: alert, oriented X3, CN II-XII intact Psychiatric exam: Present: normal affect, normal mood Skin exam: Present: warm, dry, intact, normal color. Absent: rash Course Vital Signs 07/27/24 07/27/24 07/27/24 12:40 14:08 14:11 Temperature 100.4 F H 100.3 F H Pulse Rate 76 68 Respiratory 16 18 18 Rate Blood Pressure 145/73 148/77 O2 Sat by Pulse 93 L 97 Oximetry 07/27/24 07/27/24 14:17 15:20 Temperature 99.9 F H Pulse Rate 70 Respiratory 18 18 Rate Blood Pressure 146/78 O2 Sat by Pulse 96 Oximetry Medical Decision Making - Medical Decision Making This is an 89-year-old female who presents to the emergency department for coughing and congestion. Was pt. sent in by a medical professional or institution? @ -No Did you speak to anyone other than the patient for history? @ -No Did you review nursing and triage notes? @ -Yes, and I agree, it is accurate with regards to the patient's symptoms. Were old charts reviewed? @ -No Differential Diagnosis? @ -Differential Cough: Influenza, Covid, RSV, croup, allergic rhinitis, GERD, pneumonia, bronchitis, COPD, viral pharyngitis, streptococcal pharyngitis, this is not meant to be an all-inclusive list. EKG interpreted by me (3pts min.)? @ -Not obtained X-rays interpreted by me (1pt min.)? @ -Chest x-ray obtained. My interpretation identifies a mild patchy density in the left lower lung CT interpreted by me (1pt min.)? @ -Not obtained U/S interpreted by me (1pt. min.)? @ -Not obtained What testing was considered but not performed? (CT, X-rays, U/S, labs)? Why? @ -None What meds were considered but not given? Why? @ -None Did you discuss the management of the patient with other professionals? @ -No Did you reconcile home meds? @ -No Was smoking cessation discussed for >3mins.? @ -No Was critical care preformed (if so, how long)? @ -No Were there social determinants of health that impacted care today? How? (Homelessness, low income, unemployed, alcoholism, drug addiction, transportation, low edu. Level, literacy, decrease access to med. care, alf, rehab)? @ -No Was there de-escalation of care discussed even if they declined? (Discuss DNR or withdrawal of care, Hospice)? @ -No What co-morbidities impacted this encounter? (DM, HTN, Smoking, COPD, CAD, Cancer, CVA, Hep., AIDS, mental health diagnosis, sleep apnea, morbid obesity)? @ -Asthma Was patient admitted / discharged? @ -Discharged. Patient positive for COVID-19. RSV and influenza testing negative. Chest x-ray demonstrates an area of patchy atelectasis without definitive infiltrate. However, early infiltrate cannot be excluded. Advised follow-up x-ray for reevaluation of this area. She had a temperature of 100.4 F on arrival. She was treated with 1 g of Tylenol as well as IM Decadron. Discussed the option of Paxlovid with the patient, and she requested to proceed. This was prescribed with renal dosing along with Tessalon Perles for symptomati c management. She was also given a prescription for Zofran in case she develops any additional nausea. Otherwise advised continuing with Tylenol as needed for fevers and getting plenty of rest and remaining well-hydrated. Patient discharged home in stable condition. Case discussed with ED attending Dr. Cowart. Return precautions reviewed in depth, the patient is instructed to return to the emergency department with any new, worsening, or concerning symptoms. Patient verbalized understanding. Undiagnosed new problem with uncertain prognosis? @ -None Drug Therapy requiring intensive monitoring for toxicity (Heparin, Nitro, Insulin, Cardizem)? @ -None Were any procedures done? @ -None Diagnosis/symptom? @ -COVID-19 Acute, or Chronic, or Acute on Chronic? @ -Acute Uncomplicated (without systemic symptoms) or Complicated (systemic symptoms)? @ -Uncomplicated Side effects of treatment? @ -None Exacerbation, Progression, or Severe Exacerbation] @ -Not applicable Poses a threat to life or bodily function? @ -Unlikely - Lab Data Lab Results 07/27/24 Range/Units 13:09 Influenza Type A (PCR) Not Detected (Not Detectd) Influenza Type B (PCR) Not Detected (Not Detectd) RSV (PCR) Not Detected (Not Detectd) SARS-CoV-2 (PCR) Detected A (Not Detectd) - Radiology Data Radiology results: report reviewed, image reviewed Disposition Clinical Impression: COVID-19 Disposition: HOME SELF-CARE Instructions (If sedation given, give patient instructions): COVID-19 (Coronavirus Disease 2019) (ED), How to Recover from COVID-19 at Home (ED) Additional Instructions: Return to the emergency department with any new, worsening, or concerning symptoms. Take the Paxlovid as prescribed for 5 days. Take the Tessalon Perles as 1 to 2 capsules every 8 hours as needed for coughing. You can take the Zofran up to every 8 hours as needed for nausea and vomiting. Use your inhaler every 4-6 hours as needed to help with your breathing and wheezing. Take Tylenol as needed for any additional fevers. Make sure you get plenty of rest and remain well-hydrated. Prescriptions: Nirmatrelvir/Ritonavir [Paxlovid 150-100 mg Dose Pack] 1 pack PO BID 5 Days #20 tab Benzonatate [Tessalon Perles] 100 mg PO TID PRN #30 capsule PRN Reason: Cough Ondansetron Odt [Zofran Odt] 4 mg PO Q8HR PRN #20 tab PRN Reason: Nausea And Vomiting Is patient prescribed a controlled substance at d/c from ED?: No Referrals: Gordon Blake MD [Primary Care Provider] - 1-2 days Time of Disposition: 14:54
--- NOTE | 2024-07-27 14:08 | XR ---
EXAMINATION TYPE: XR chest 2V DATE OF EXAM: 07/27/2024 COMPARISON: 10/04/2021 HISTORY: 89-year-old female with cough TECHNIQUE: PA and lateral views FINDINGS: Heart mildly enlarged. Large hiatal hernia redemonstrated projecting behind the heart. Hyperinflation . Biapical pleural-parenchymal scarring. Mild patchy density at the left lower lung. Otherwise, no co nsolidation or pleural effusion. IMPRESSION: 1. COPD. There is some patchy atelectasis versus early infiltrate at the left base. 2. Large hiatal hernia redemonstrated. [facility], , 07/27/2024 2:06 PM
[2024-07-27 14:11] VITALS: RESP 18
[2024-07-27] MEDS: DEXAMETHASONE SOD PHOSPHATE 10 MG/ML 1 ML VIAL IM STA (14:53)
[2024-07-27] MEDS: ACETAMINOPHEN TAB 500 MG TAB PO STA (14:53)
[2024-07-27 15:21] VITALS: BP 146/78; PULSE 70; TEMP 99.9
== END 2024-07-27 15:17 | disposition home or self-care (01) ==
LOC: EC 12:28
DX: U07.1 COVID-19 (principal)
CPT/HCPCS: 71046; 87636; 96372; 99285